=== PATIENT | female | born 1995 | race Caucasian/White ===

== ENCOUNTER 2023-08-08 08:41 | Emergency (ER) | payer MEDICAID, OTHER ==
[~2023-08-08] VITALS: Ht 165.1 cm; Wt 75.0 kg
[2023-08-08 08:55] VITALS: O2SAT 98
[2023-08-08] MEDS ORDERED: TOPUD MT (11:34)
[2023-08-08] MEDS ORDERED: IBUP-1523 MT (11:34)
[2023-08-08 11:45] VITALS: BP 122/87; PULSE 78; RESP 19; TEMP 98.6
[2023-08-08] MEDS ORDERED: IBUPROFEN 600MG TABLET PO ONE (11:45)
[2023-08-08] MEDS ORDERED: ACETAMINOPHEN 650MG/20.3ML UDC PO ONE (11:45)
== END 2023-08-08 11:52 | disposition home or self-care (01) ==
LOC: ER 08:41
DX: M72.2 Plantar fascial fibromatosis (principal); Z90.49 Acquired absence of other specified parts of digestive tract
CPT/HCPCS: 73630; 81025; 99283